=== PATIENT | male | born 1955 | race Caucasian/White ===

== ENCOUNTER 2017-08-02 07:32 | Day surgery (SDC) | payer BC ==
[~2017-08-02 07:32] MED LIST: LIDOCAINE HCL 1% MPF SOL ONE; PROPOFOL 500 MG/50 ML EMU IV ONE
[2017-08-02 09:47] VITALS: TEMP 97.2
[2017-08-02 10:03] VITALS: RESP 20
[2017-08-02 10:10] VITALS: BP 112/67; PULSE 58; O2SAT 94
== END 2017-08-02 10:47 | disposition home or self-care (01) ==
LOC: SURG 07:32
PROVIDERS: ATTEND Internal Medicine Gastroenterology
DX: Z12.11 Encounter for screening for malignant neoplasm of colon (principal); D12.0 Benign neoplasm of cecum; D12.3 Benign neoplasm of transverse colon; K62.1 Rectal polyp; K63.5 Polyp of colon; K64.8 Other hemorrhoids
CPT/HCPCS: 45380; 99001; J2001; J2704